=== PATIENT | female | born 1990 | race Caucasian/White ===

== ENCOUNTER 2018-02-08 19:03 | Emergency (ER) | payer SELFPAY ==
[2018-02-08 22:04] LABS: URINE BLOOD (Dip) POC Negative (NEGATIVE); URINE GLUCOSE (Dip) POC Negative (NEGATIVE); URINE KETONES (Dip) POC 2+ (NEGATIVE); URINE LEUKOCYTE EST (Dip) POC Trace (NEGATIVE); URINE NITRITE (Dip) POC Negative (NEGATIVE); URINE TOTAL PROTEIN POC Trace (NEGATIVE)
[2018-02-08] MEDS: ACETAMINOPHEN 500 MG TAB PO (22:06)
== END 2018-02-08 23:19 | disposition home or self-care (01) ==
LOC: FTE 23:19
DX: O99.511 Diseases of the respiratory system complicating pregnancy, first trimester (principal); J02.0 Streptococcal pharyngitis; R50.9 Fever, unspecified; Z3A.13 13 weeks gestation of pregnancy
CPT/HCPCS: 81003; 81025; 87086; 87400; 99283

== ENCOUNTER 2018-03-22 18:58 | Emergency (ER) | payer SELFPAY ==
[2018-03-22 20:18] LABS: ADD MAN DIFF? NO
[2018-03-22 20:20] LABS: BASOPHILS % 0.3 % (0.0-2.0); EOSINOPHILS # 0.1 10^3/ul (0.0-0.5); EOSINOPHILS % 0.6 % (0.0-7.0); HEMATOCRIT 37.5 % (37.0-47.0); HEMOGLOBIN 12.7 g/dl (12.0-16.0); LYMPHOCYTES # 2.2 10^3/ul (0.8-2.9); LYMPHOCYTES % 22.3 % (15.0-51.0); MEAN CORPUSCULAR HEMOGLOBIN 28.9 pg (29.0-33.0); MEAN CORPUSCULAR HGB CONC 33.9 g/dl (32.0-37.0); MEAN CORPUSCULAR VOLUME 85.4 fl (82.0-101.0); MEAN PLATELET VOLUME 11.4 fl (7.4-10.4); MONOCYTE # 0.5 10^3/ul (0.3-0.9); MONOCYTES % 5.1 % (0.0-11.0); NEUTROPHIL # 7.2 10^3/ul (1.6-7.5); NEUTROPHILS % 71.2 % (39.0-77.0); PLATELET COUNT 253 10^3/UL (140-415); RED BLOOD COUNT 4.39 10^6/ul (4.20-5.40); RED CELL DISTRIBUTION WIDTH 13.8 % (11.5-14.5)
[2018-03-22 20:25] LABS: ADD UMIC YES; UR ASCORBIC ACID NEGATIVE (NEGATIVE); UR BACTERIA FEW /HPF (NONE SEEN); UR BILIRUBIN (Dip) NEGATIVE (NEGATIVE); UR BLOOD (Dip) NEGATIVE (NEGATIVE); UR CLARITY CLOUDY (CLEAR); UR COLOR YELLOW (YELLOW); UR GLUCOSE (Dip) NEGATIVE (NEGATIVE); UR KETONES (Dip) 1+ mg/dL (NEGATIVE); UR LEUKOCYTE ESTERASE (Dip) 2+ Leu/ul (NEGATIVE); UR MUCUS FEW /HPF (NONE SEEN); UR NITRITE (Dip) NEGATIVE (NEGATIVE); UR RBC 7 /HPF (0-5); UR SPECIFIC GRAVITY (Dip) 1.011 (1.003-1.030); UR SQUAMOUS EPITHELIAL CELL MODERATE /HPF (FEW); UR TOTAL PROTEIN (Dip) NEGATIVE (NEGATIVE); UR UROBILINOGEN (Dip) NEGATIVE (NEGATIVE); UR WBC 11 /HPF (0-5)
[2018-03-22 20:52] LABS: ALANINE AMINOTRANSFERASE 75 IU/L (13-69); ALBUMIN 3.9 g/dl (3.3-4.9); ALBUMIN/GLOBULIN RATIO 1.14; ALKALINE PHOSPHATASE 87 IU/L (42-121); ANION GAP 11 (5-13); ASPARTATE AMINO TRANSFERASE 32 IU/L (15-46); BILIRUBIN,INDIRECT 0.2 mg/dl (0-1.1); BILIRUBIN,TOTAL 0.2 mg/dl (0.2-1.3); BLOOD UREA NITROGEN 7 mg/dl (7-20); CALCIUM 9.3 mg/dl (8.4-10.2); CARBON DIOXIDE 23 mmol/L (21-31); CHLORIDE 105 mmol/L (97-110); Estimated GFR > 60 mL/min (>60); GLUCOSE 99 mg/dl (70-220); LIPASE 148 U/L (23-300); POTASSIUM 3.7 mmol/L (3.5-5.1); SODIUM 139 mmol/L (135-144); TOTAL PROTEIN 7.3 g/dl (6.1-8.1)
[2018-03-22] MEDS: LIDOCAINE 1% (MDV) 20 ML INJ SC (20:57)
[2018-03-22] MEDS: CEFTRIAXONE 1 GM INJ IM (20:57)
[2018-03-22] MEDS: CEFTRIAXONE 1 GM/50 ML (PMX) 50 ML IVPB (21:05)
[2018-03-22] MEDS: LIDOCAINE 1% (MPF) 5 ML VIAL SC (21:06)
== END 2018-03-22 21:30 | disposition home or self-care (01) ==
LOC: FTE 18:58
DX: O23.42 Unspecified infection of urinary tract in pregnancy, second trimester (principal); Z04.3 Encounter for examination and observation following other accident; Z3A.18 18 weeks gestation of pregnancy
CPT/HCPCS: 36415; 76805; 80053; 81001; 83690; 84702; 85025; 86900; 86901; 96372; 99285-25

== ENCOUNTER 2018-08-16 13:08 | Inpatient (IN) | payer OTHER ==
[2018-08-16 13:50] LABS: ADD UMIC NO; UR ASCORBIC ACID NEGATIVE (NEGATIVE); UR BACTERIA FEW /HPF (NONE SEEN); UR BILIRUBIN (Dip) NEGATIVE (NEGATIVE); UR BLOOD (Dip) NEGATIVE (NEGATIVE); UR CLARITY SLIGHTLY CLOUDY (CLEAR); UR COLOR YELLOW (YELLOW); UR GLUCOSE (Dip) NEGATIVE (NEGATIVE); UR KETONES (Dip) NEGATIVE (NEGATIVE); UR LEUKOCYTE ESTERASE (Dip) NEGATIVE Leu/ul (NEGATIVE); UR NITRITE (Dip) NEGATIVE (NEGATIVE); UR RBC 1 /HPF (0-5); UR SPECIFIC GRAVITY (Dip) 1.008 (1.003-1.030); UR SQUAMOUS EPITHELIAL CELL FEW /HPF (FEW); UR TOTAL PROTEIN (Dip) NEGATIVE (NEGATIVE); UR UROBILINOGEN (Dip) NEGATIVE (NEGATIVE); UR WBC 1 /HPF (0-5)
[2018-08-16 13:58] LABS: ADD MAN DIFF? NO
[2018-08-16 14:01] LABS: WHITE BLOOD COUNT 8.7 10^3/ul (4.8-10.8)
[2018-08-16 14:01] LABS: BASOPHILS % 0.3 % (0.0-2.0); EOSINOPHILS % 0.3 % (0.0-7.0); HEMATOCRIT 36.6 % (37.0-47.0); HEMOGLOBIN 11.8 g/dl (12.0-16.0); LYMPHOCYTES % 22.4 % (15.0-51.0); MEAN CORPUSCULAR HEMOGLOBIN 25.4 pg (29.0-33.0); MEAN CORPUSCULAR HGB CONC 32.2 g/dl (32.0-37.0); MEAN CORPUSCULAR VOLUME 78.9 fl (82.0-101.0); MEAN PLATELET VOLUME 12.3 fl (7.4-10.4); MONOCYTE # 0.5 10^3/ul (0.3-0.9); MONOCYTES % 6.1 % (0.0-11.0); NEUTROPHIL # 6.1 10^3/ul (1.6-7.5); NEUTROPHILS % 70.2 % (39.0-77.0); PLATELET COUNT 223 10^3/UL (140-415); RED BLOOD COUNT 4.64 10^6/ul (4.20-5.40); RED CELL DISTRIBUTION WIDTH 14.2 % (11.5-14.5)
[2018-08-16 14:17] LABS: ALANINE AMINOTRANSFERASE 28 IU/L (13-69); ALBUMIN 3.4 g/dl (3.3-4.9); ALBUMIN/GLOBULIN RATIO 0.85; ALKALINE PHOSPHATASE 182 IU/L (42-121); ANION GAP 11 (5-13); ASPARTATE AMINO TRANSFERASE 25 IU/L (15-46); BILIRUBIN,INDIRECT 0.2 mg/dl (0-1.1); BILIRUBIN,TOTAL 0.2 mg/dl (0.2-1.3); BLOOD UREA NITROGEN 12 mg/dl (7-20); CALCIUM 8.9 mg/dl (8.4-10.2); CARBON DIOXIDE 20 mmol/L (21-31); CHLORIDE 107 mmol/L (97-110); CREATININE 0.56 mg/dl (0.44-1.00); Estimated GFR > 60 mL/min (>60); GLUCOSE 78 mg/dl (70-220); POTASSIUM 4.2 mmol/L (3.5-5.1); SODIUM 138 mmol/L (135-144); TOTAL PROTEIN 7.4 g/dl (6.1-8.1); URIC ACID 5.9 mg/dl (3.1-7.9)
[2018-08-16 14:20] LABS: PROTIME 12.3 Sec (11.9-14.9)
[2018-08-16] MEDS ORDERED: LIDOCAINE 1% (MPF) 30 ML INJ INJ (15:30)
[2018-08-16] MEDS ORDERED: BUTORPHANOL 2 MG INJ IV (15:30)
[2018-08-16] MEDS ORDERED: MISOPROSTOL 50 MCG CAPSULE VAG (15:30)
[2018-08-16] MEDS ORDERED: CARBOPROST 250 MCG INJ IM (15:30)
[2018-08-16] MEDS ORDERED: MISOPROSTOL 200 MCG TAB PR (15:30)
[2018-08-16] MEDS ORDERED: OXYTOCIN 30 UNITS/LR 500 ML IV ×2 (15:30)
[2018-08-16] MEDS ORDERED: METHYLERGONOVINE 0.2 MG INJ IM (15:30)
[2018-08-16] MEDS ORDERED: OXYCODONE/ASPIRIN (4.88/325) TAB PO (15:30)
[2018-08-16 16:21] LABS: HEPATITIS B SURFACE ANTIGEN NEGATIVE (NEGATIVE)
[2018-08-16] MEDS: LACTATED RINGER'S 1,000 ML IV ×2 (16:31→22:10)
[2018-08-16] MEDS: MISOPROSTOL 50 MCG CAPSULE PO ×2 (17:43→22:10)
[2018-08-16 22:22] LABS: RAPID PLASMA REAGIN NONREACTIVE (NR)
[2018-08-17] MEDS ORDERED: ONDANSETRON 4 MG INJ IV (03:30)
[2018-08-17] MEDS ORDERED: DIPHENHYDRAMINE 50 MG INJ IV (03:30)
[2018-08-17] MEDS ORDERED: NALOXONE (0.4 MG/ML) INJ IV (03:30)
[2018-08-17] MEDS ORDERED: HYDROmorphONE 0.5 MG/0.5 ML SYG IV ×2 (03:30)
[2018-08-17] MEDS ORDERED: KETOROLAC 30 MG INJ IV (03:30)
[2018-08-17] MEDS: LACTATED RINGER'S 1,000 ML IV ×3 (03:34→14:56)
[2018-08-17] MEDS: OXYTOCIN 30 UNITS/LR 500 ML IV ×2 (08:08→18:57)
[2018-08-17] MEDS: FENTAnyl 2MCG/ML-ROPIV 0.2% 100 ML BAG EPI (13:31)
[2018-08-17] MEDS: KETOROLAC 30 MG INJ IV (18:11)
[2018-08-17] MEDS: MINERAL OIL LIGHT 10 ML VIAL TOP (18:56)
[2018-08-17] MEDS: IBUPROFEN 600 MG TAB PO ×2 (19:41→23:50)
[2018-08-17] MEDS ORDERED: OXYTOCIN 30 UNITS/LR 500 ML IV (20:30)
[2018-08-17] MEDS ORDERED: WITCH HAZEL/GLYCERIN PAD PR (20:30)
[2018-08-17] MEDS ORDERED: DIBUCAINE 1% 30 GM OINT TOP (20:30)
[2018-08-17] MEDS ORDERED: MISOPROSTOL 200 MCG TAB PR (20:30)
[2018-08-17] MEDS ORDERED: BENZOCAINE 20% 56 ML SPRAY TOP (20:30)
[2018-08-17] MEDS ORDERED: CARBOPROST 250 MCG INJ IM (20:30)
[2018-08-17] MEDS ORDERED: METHYLERGONOVINE 0.2 MG INJ IM (20:30)
[2018-08-17] MEDS ORDERED: LANOLIN HPA 1 PKT TOP (20:30)
[2018-08-17] MEDS ORDERED: ZOLPIDEM 5 MG TAB PO (20:30)
[2018-08-17] MEDS ORDERED: HYDROCODONE/APAP (5/325) TAB PO ×2 (20:30)
[2018-08-17] MEDS: SENNA/DOCUSATE NA (8.6MG/50MG) TAB PO (21:00)
[2018-08-17] MEDS: MAGNESIUM HYDROXIDE 30ML CUP PO (21:00)
[2018-08-17] MEDS: CEPHALEXIN 500 MG CAP PO (23:50)
[2018-08-18] MEDS: LACTATED RINGER'S 1,000 ML IV* (00:48)
[2018-08-18] MEDS: IBUPROFEN 600 MG TAB PO ×4 (05:43→23:46)
[2018-08-18] MEDS: CEPHALEXIN 500 MG CAP PO ×4 (05:43→23:46)
[2018-08-18 08:46] LABS: ADD MAN DIFF? NO
[2018-08-18 08:53] LABS: WHITE BLOOD COUNT 10.8 10^3/ul (4.8-10.8)
[2018-08-18 08:53] LABS: BASOPHILS % 0.4 % (0.0-2.0); EOSINOPHILS # 0.1 10^3/ul (0.0-0.5); EOSINOPHILS % 0.5 % (0.0-7.0); HEMATOCRIT 35.3 % (37.0-47.0); HEMOGLOBIN 11.3 g/dl (12.0-16.0); LYMPHOCYTES # 2.3 10^3/ul (0.8-2.9); LYMPHOCYTES % 21.2 % (15.0-51.0); MEAN CORPUSCULAR HEMOGLOBIN 25.3 pg (29.0-33.0); MEAN CORPUSCULAR VOLUME 79.1 fl (82.0-101.0); MEAN PLATELET VOLUME 12.7 fl (7.4-10.4); MONOCYTE # 0.5 10^3/ul (0.3-0.9); MONOCYTES % 4.9 % (0.0-11.0); NEUTROPHIL # 7.8 10^3/ul (1.6-7.5); NEUTROPHILS % 72.5 % (39.0-77.0); PLATELET COUNT 177 10^3/UL (140-415); RED BLOOD COUNT 4.46 10^6/ul (4.20-5.40); RED CELL DISTRIBUTION WIDTH 14.6 % (11.5-14.5)
[2018-08-18] MEDS: SENNA/DOCUSATE NA (8.6MG/50MG) TAB PO ×2 (08:53→21:31)
[2018-08-18] MEDS: MAGNESIUM HYDROXIDE 30ML CUP PO ×2 (08:53→21:00)
[2018-08-19] MEDS: IBUPROFEN 600 MG TAB PO ×2 (05:53→12:00)
[2018-08-19] MEDS: CEPHALEXIN 500 MG CAP PO ×2 (05:53→12:06)
[2018-08-19] MEDS: SENNA/DOCUSATE NA (8.6MG/50MG) TAB PO (09:00)
[2018-08-19] MEDS: MAGNESIUM HYDROXIDE 30ML CUP PO (09:00)
[2018-08-19] MEDS: DIPHTH/TET/ACEL PERTUSS (ADULT) 0.5 ML VIAL IM* (09:43)
[2018-08-19] MEDS: VARICELLA VACCINE LIVE/PF 1,350 UNIT/0.5 ML ML SC* (09:43)
[2018-08-19] MEDS: MEASLES,MUMPS,RUBELLA VACCINE INJ SC* (09:43)
== END 2018-08-19 15:14 | disposition home or self-care (01) | DRG 807 ==
LOC: OBT 13:08 → L-D 13:08 → OBT 14:55 → PP1 08-17 20:47 → L-D 14:55
PROC: 10E0XZZ Delivery of Products of Conception, External Approach (ICD-10-PCS; principal; 2018-08-17)
PROC: 0HQ9XZZ Repair Perineum Skin, External Approach (ICD-10-PCS; 2018-08-17)
DX: O70.0 First degree perineal laceration during delivery (principal); Z37.0 Single live birth; Z3A.39 39 weeks gestation of pregnancy
CPT/HCPCS: 76815; 76818; 80053; 81001; 81003; 84560; 85025; 85610; 85730; 86592; 86850; 86900; 86901; 87340; 90716; 99464